=== PATIENT | female | born 2000 | race Caucasian/White ===

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

== ENCOUNTER 2023-08-20 10:40 | Emergency (ER) | payer MEDICAID ==
[2023-08-20 10:52] VITALS: PULSE 67; TEMP 98
[2023-08-20] MEDS ORDERED: Zofran 4 MG/2 ML VIAL ONE (11:09)
[2023-08-20] MEDS ORDERED: Sodium Chloride 0.9% 1000 ML 1,000 ML ONE (11:09)
[2023-08-20] MEDS ORDERED: PROTONIX 40 MG IV IV ONE (11:09)
[2023-08-20] MEDS: Sodium Chloride 0.9% 1000 ML 1,000 ML IV SCH (11:16)
[2023-08-20] MEDS: PROTONIX 40 MG IV IV ONE (11:17)
[2023-08-20] MEDS: Zofran 4 MG/2 ML VIAL IV ONE (11:17)
[2023-08-20 11:18] LABS: Hematocrit 41.9 % (35-47); Hemoglobin 14.3 g/dL (12.0-16.0); Mean Cell Volume 90.5 fL (78-100); Mean Corpuscular Hemoglobin 30.9 pg (26-32); Mean Corpuscular Hgb Concent. 34.1 g/dL (32-36); Mean Platelet Volume 9.9 fL (7.5-11.0); Platelet Count 218 x10^3/uL (150-450); Red Blood Count 4.63 x10^6/uL (4.1-5.4); Red Cell Distribution Width 12.4 % (11.5-14.0)
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
[2023-08-20 11:23] LABS: HCG URINE TEST NEGATIVE (NEGATIVE)
[2023-08-20 11:27] LABS: Appearance Clear (Clear); Bacteria None Seen /HPF (None Seen); Bilirubin Negative (Negative); Blood Negative (Negative); Epithelial Cells Moderate /HPF (None Seen); Glucose, Urine Negative (Negative); Hyaline Casts NONE SEEN /LPF (0-2); Ketones Negative (Negative); Leukocyte Esterase Small (Negative); Nitrite Negative (Negative); Ph 7.5 (4.6-8.0); Protein,Urine Dip 30 (Negative); RBC 0-2 /HPF (0-5); Specific Gravity >=1.030 (1.005-1.030)
[2023-08-20 11:32] LABS: ADD URINE CULTURE? YES (NO)
[2023-08-20 11:38] LABS: ALKALINE PHOSPHATASE 54 U/L (38-126); ANION GAP 15.3 MEQ/L (5-15); BLOOD UREA NITROGEN 11 mg/dL (7-17); CHLORIDE 108 mmol/L (98-107); Calcium 9.5 mg/dL (8.4-10.2); Carbon Dioxide 25 mmol/L (22-30); Creatinine 1 0.73 mg/dL (0.52-1.04); EST GLOMERULAR FILTRATION RATE 119.9 ML/MIN; ETHYL ALCOHOL < 10 mg/dL (0-10); Glucose 95 mg/dL (74-106); LIPASE 81 U/L (23-300); Potassium 3.7 mmol/L (3.5-5.1); SGOT/AST 34 U/L (14-36); SGPT/ALT 21 U/L (0-35); SODIUM 144 mmol/L (137-145); Total Protein 7.7 g/dL (6.3-8.2)
[2023-08-20 12:05] VITALS: BP 131/86
[2023-08-20 12:39] VITALS: O2SAT 100
== END 2023-08-20 12:45 | disposition home or self-care (01) ==
LOC: ED 10:40
DX: K52.9 Noninfective gastroenteritis and colitis, unspecified (principal); N39.0 Urinary tract infection, site not specified; R11.2 Nausea with vomiting, unspecified; R10.13 Epigastric pain; R53.1 Weakness; Z28.310 Unvaccinated for COVID-19
CPT/HCPCS: 36415; 80053; 81001; 81025; 82077; 83690; 85027; 87086; 96360; 96374; 96375; 99284; J2405

== ENCOUNTER 2024-04-15 11:54 | Emergency (ER) | payer OTHER ==
[2024-04-15 12:09] VITALS: RESP 18; TEMP 97
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
[2024-04-15] MEDS: TORAdol 30 mg Injection IM ONE (14:05)
[2024-04-15 14:07] VITALS: BP 126/82; PULSE 78; O2SAT 98
[2024-04-15] MEDS ORDERED: TORAdol 30 mg Injection ONE (14:10)
--- NOTE | 2024-04-15 18:33 | XRAY ---
Indication: Pain following fall. Comparison: None 3 view left wrist demonstrates nondisplaced fracture mid body scaphoid. No other bony, articular, or soft tissue abnormalities.
== END 2024-04-15 14:22 | disposition home or self-care (01) ==
LOC: ED 11:54
DX: S62.035A Nondisplaced fracture of proximal third of navicular [scaphoid] bone of left wrist, initial encounter for closed fracture (principal); W03.XXXA Other fall on same level due to collision with another person, initial encounter; Z72.0 Tobacco use; Z59.819 Housing instability, housed unspecified
CPT/HCPCS: 29125; 73110; 96372; 99283; J1885